=== PATIENT | male | born 1955 | race Caucasian/White ===

== ENCOUNTER → 2023-07-13 09:11 | Outpatient (REF) | payer OTHER, SELFPAY | LOC: RAD 09:11 | PROVIDERS: ATTENDING PHYSICIAN Orthopaedic Surgery; FAMILY PHYSICIAN Internal Medicine | DX: Z77.018 Contact with and (suspected) exposure to other hazardous metals (principal) | CPT/HCPCS: 70030 ==

== ENCOUNTER → 2023-07-18 07:06 | Outpatient (REF) | payer OTHER, SELFPAY | LOC: MRI 3T 07:06 | PROVIDERS: ATTENDING PHYSICIAN Orthopaedic Surgery; FAMILY PHYSICIAN Internal Medicine | DX: M25.812 Other specified joint disorders, left shoulder (principal); M75.82 Other shoulder lesions, left shoulder | CPT/HCPCS: 73221 ==